=== PATIENT | male | born 1955 | race Caucasian/White ===

== ENCOUNTER → 2017-10-15 | Outpatient (CLI) | payer BC, MEDICAID ==
[2017-10-15 10:49] LABS: Basophils % (A) 0 %; Eosinophils # (A) 0.3 k/uL (0-0.7); Eosinophils % (A) 4 %; HCT 44.6 % (39.0-53.0); HGB 14.8 gm/dL (13.0-17.5); Lymphocytes # (A) 1.8 k/uL (1.0-4.8); Lymphocytes % (A) 22 %; MCH 30.7 pg (25.0-35.0); MCHC 33.1 g/dL (31.0-37.0); MCV 92.7 fL (80.0-100.0); Mean Platelet Volume 7.5; Monocytes # (A) 0.5 k/uL (0-1.0); Monocytes % (A) 6 %; Neutrophils # (A) 5.6 k/uL (1.3-7.7); Neutrophils % (A) 67 %; Platelet Count 245 k/uL (150-450); RBC 4.81 m/uL (4.30-5.90); RDW 12.9 % (11.5-15.5); WBC 8.4 k/uL (3.8-10.6)
[2017-10-15 12:12] LABS: Albumin 4.4 g/dL (3.5-5.0); Calcium 9.8 mg/dL (8.4-10.2); Potassium 4.8 mmol/L (3.5-5.1); Total Bilirubin 0.6 mg/dL (0.2-1.3); Total Protein 7.1 g/dL (6.3-8.2)
[2017-10-15 12:21] LABS: T4, Free (Free Thyroxine) 0.75 ng/dL (0.78-2.19)
[2017-10-15 12:35] LABS: PSA Annual Screen 0.7 ng/mL (0.00-4.00)
[2017-10-15 17:39] LABS: Hemoglobin A1C 6.6 % (4.0-6.0)
== END | disposition home or self-care (01) ==
LOC: LABWHC1 09:53
PROVIDERS: ATTEND Internal Medicine
DX: Z00.00 Encounter for general adult medical examination without abnormal findings (principal); E78.5 Hyperlipidemia, unspecified; I10 Essential (primary) hypertension; E11.9 Type 2 diabetes mellitus without complications; Z12.5 Encounter for screening for malignant neoplasm of prostate
CPT/HCPCS: 84439; 80061; 80053; 84443; 85025; 83036; 36415; G0103

== ENCOUNTER → 2017-10-22 | Outpatient (CLI) | payer BC, MEDICAID ==
--- NOTE | 2017-10-22 15:44 | US ---
EXAMINATION TYPE: US kidneys/renal and bladder DATE OF EXAM: 10/22/2017 COMPARISON: NONE CLINICAL HISTORY: R79.9 ABN LABS. EXAM MEASUREMENTS: Right Kidney: 11.5 x 5.7 x 5.7 cm Left Kidney: 11.1 x 6.4 x 6.2 cm Right Kidney: No hydronephrosis or masses seen Left Kidney: exophytic cyst upper pole measures 2.7 x 2.1 x 2.8 cm Bladder: wnl Bilateral Jets seen: Yes There is no evidence for hydronephrosis at this point in time. No nephrolithiasis is seen. No akbar s are identified. The urinary bladder is anechoic. Bilateral ureteral jets are seen. IMPRESSION: 1. Simple appearing cyst left kidney.
== END | disposition home or self-care (01) ==
LOC: RADUSWWP 15:05
PROVIDERS: ATTEND Internal Medicine
DX: N28.1 Cyst of kidney, acquired (principal)
CPT/HCPCS: 76770

== ENCOUNTER → 2017-11-23 | Outpatient (CLI) | payer BC, MEDICAID ==
--- NOTE | 2017-11-23 11:38 | MR ---
EXAMINATION TYPE: MR knee RT wo con DATE OF EXAM: 11/23/2017 COMPARISON: NONE HISTORY: Rt knee pain x 2 mos, no trauma TECHNIQUE: Multiplanar, multisequence imaging of the right knee is performed without IV contrast. FINDINGS: Narrowing the medial compartment knee joint and patellofemoral joint compatible with osteoa rthritis. No erosive change. Abnormal signal and intraosseous lesion involving the distal diaphysis of the femur may represent a b one cyst or chondroid lesion. There is a complex tear involving the posterior horn and body of the medial meniscus. There is adjace nt loss of cartilage involving the articular surface of the tibia and femur compatible with chondroma lacia. There is a small para meniscal cyst along the anterior horn of the lateral meniscus and probable fail ed tear. Intrasubstance signal the posterior horn the lateral meniscus also noted which appears olive tible with a tear. Anterior cruciate, posterior cruciate, medial collateral, lateral collateral ligaments intact. There is a small patellofemoral joint effusion with evidence of complete loss of cartilage along the medial patellar facet. No sizable popliteal fossa cyst. Patellar and quadriceps tendons intact. IMPRESSION: 1. Complex tear posterior horn and body medial meniscus with evidence of chondromalacia involving the articular surface of the medial margin of the femur and tibia. 2. Para meniscal cyst along the anterior horn of the lateral meniscus compatible with tear. There is extension of the tear into the body and posterior horn. 3. 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 4. Moderate suprapatellar bursal fluid collection #5 intraosseous lesion involving the distal femur m easuring 2 cm. Differential diagnosis would include chondroid lesion as a plain film suggested may be slightly sclerotic. Recommend bone scan. 5. Marrow edema involving the anterior central aspect of the femur compatible with nonspecific marrow edema. This may be reactive. Thinning of the femoral cartilage is noted anteriorly. Osteochondritis in the differential diagnosis.
== END ==
LOC: RADMRIMAIN 10:21
PROVIDERS: ATTEND Orthopaedic Surgery
DX: S83.241A Other tear of medial meniscus, current injury, right knee, initial encounter (principal); X58.XXXA Exposure to other specified factors, initial encounter; M94.261 Chondromalacia, right knee; M17.11 Unilateral primary osteoarthritis, right knee; M89.9 Disorder of bone, unspecified

== ENCOUNTER → 2017-12-10 | Outpatient (CLI) | payer BC, MEDICAID ==
--- NOTE | 2017-12-10 13:25 | NM ---
EXAMINATION TYPE: NM bone 3 phase DATE OF EXAM: 12/10/2017 COMPARISON: Correlation outside radiographs 11/11/2017. HISTORY: 62 year-old male right lower limb pain and swelling, right knee pain for 3 months with exert ion. History of prior fractures of the right hand and right leg. Prior right leg surgery with 2 pins inserted over 40 years ago. Technique: Triple phase bone scintigraphy was performed following the injection of 27.1 mCi Tc 99m MD P. Immediate images and 3.5 hours post injection images acquired. Imaging was performed of the [facility] knees. FINDINGS: Flow images show slight hyperemia about the right knee. Bone images show increased activity at the right knee especially about the distal femur. Delayed images show focal increased activity along both medial, lateral, and patellofemoral compartme nts. On the left, there is focal increased activity especially in the medial compartment to a lesser exten t within the patellofemoral compartment. IMPRESSION: 1. Three-phase bone scan abnormality right knee. Findings suggest tricompartmental degenerative dubon e with acute inflammation. Possibly osteoarthrosis. Correlate to exclude underlying infectious or inf lammatory (such as rheumatoid or crystalline) arthropathy. 2. On the left, there is chronic medial and to a lesser extent, patellofemoral compartmental, osteoar throsis.
== END | disposition home or self-care (01) ==
LOC: RADNMMAIN 07:03
PROVIDERS: ATTEND Orthopaedic Surgery
DX: M17.12 Unilateral primary osteoarthritis, left knee (principal); R22.41 Localized swelling, mass and lump, right lower limb
CPT/HCPCS: 78315; A9503

== ENCOUNTER → 2018-01-18 | Outpatient (CLI) | payer BC, MEDICAID ==
[2018-01-18 09:58] LABS: Basophils % (A) 0 %; Eosinophils # (A) 0.3 k/uL (0-0.7); Eosinophils % (A) 5 %; HCT 40.9 % (39.0-53.0); HGB 13.6 gm/dL (13.0-17.5); Lymphocytes # (A) 1.4 k/uL (1.0-4.8); Lymphocytes % (A) 20 %; MCH 31.6 pg (25.0-35.0); MCHC 33.3 g/dL (31.0-37.0); MCV 94.9 fL (80.0-100.0); Mean Platelet Volume 6.5; Monocytes # (A) 0.5 k/uL (0-1.0); Monocytes % (A) 7 %; Neutrophils # (A) 4.7 k/uL (1.3-7.7); Neutrophils % (A) 67 %; Platelet Count 192 k/uL (150-450); RBC 4.31 m/uL (4.30-5.90); RDW 13.7 % (11.5-15.5)
[2018-01-18 10:59] LABS: Potassium 5.1 mmol/L (3.5-5.1)
== END | disposition home or self-care (01) ==
LOC: LABWHC1 08:09
PROVIDERS: ATTEND Orthopaedic Surgery
DX: Z01.818 Encounter for other preprocedural examination (principal); M23.91 Unspecified internal derangement of right knee; Z01.812 Encounter for preprocedural laboratory examination
CPT/HCPCS: 36415; 80051; 85025; 93005

== ENCOUNTER 2018-02-03 08:22 | Day surgery (SDC) | payer BC, MEDICAID ==
[2018-01-28 12:56] VITALS: BMI 33.5
--- NOTE | 2018-02-02 16:15 | HP ---
HISTORY AND PHYSICAL REASON FOR ADMISSION: Surgery 02/03/2018 HISTORY OF PRESENT ILLNESS: Satya Mcdaniel is a 62-year-old patient seen with progressive right knee pain. We discussed treatment options. He elected to proceed with right knee arthroscopy. Consent was obtained. PAST MEDICAL HISTORY: Hypertension, [id number] diabetes. SURGICAL HISTORY: Noncontributory. MEDICATIONS: Antihypertensive. ALLERGIES: None reported. SOCIAL HISTORY: Patient denies current tobacco use. PHYSICAL EXAMINATION: Evaluation right knee range of motion 0-120. Mild to moderate effusion. Tenderness medial lateral joint line. Positive medial Jerel's. Positive lateral Jerel's. Ligaments stable. Hip rotation without pain. Distal neurovascular exam intact. RADIOGRAPHS: Right knee radiographs revealed mild to moderate osteoarthritic changes. Right knee MRI revealed medial meniscal tear, lateral meniscal tear. IMPRESSION: 1. Internal derangement, right knee with medial lateral meniscal tears. 2. Hypertension. 3. Nls-[id number] diabetes. PLAN: Right knee arthroscopy with partial meniscectomy and debridement. Surgery scheduled 02/03/2018. MMODL / IJN: [id number] /
[~2018-02-03 08:22] MED LIST: DEXAMETHASONE SOD PHOSPHATE 10 MG/ML 1 ML VIAL IV ONE; HYDROmorphone 0.5 MG/0.5 ML SYRINGE IVP PRN; LACTATED RINGERS 1,000 ML IV SCH; ONDANSETRON 4 MG/2 ML VIAL IVP ONE; ceFAZolin IN SWFI 2 GM/20 ML SYRINGE IVP ONE
[2018-02-03] MEDS ORDERED: LIDOCAINE 1% 20 ML VIAL (10MG/ML) FOR IV START INTRADERMA ONE (08:32)
[2018-02-03] MEDS ORDERED: PROPOFOL 10 MG/ML 20 ML VIAL IV ONE (09:10)
[2018-02-03] MEDS ORDERED: SUCCINYLCHOLINE CHLORIDE 100 MG/5 ML SYR IV ONE (09:10)
[2018-02-03] MEDS ORDERED: MIDAZOLAM 2 MG/2 ML VIAL ONE (09:10)
[2018-02-03] MEDS ORDERED: ePHEDrine SULFATE/0.9% NACL/PF 50 MG/5 ML SYRINGE IV ONE (09:10)
[2018-02-03] MEDS ORDERED: LIDOCAINE 1% INJ 10MG/ML (20 ML MDV) ONE (09:10)
[2018-02-03] MEDS ORDERED: ALBUTEROL INHALER 60 PUFF/8 GM INHALER INHALATION ONE (09:10)
[2018-02-03] MEDS ORDERED: fentaNYL (PF) 50 MCG/ML 2 ML AMP ONE (09:10)
[2018-02-03] MEDS ORDERED: ROPIVACAINE 5 MG/ML 30 ML VIAL MISCELLANE ONE (09:27)
--- NOTE | 2018-02-03 10:22 | P.OP ---
Date of Procedure: 02/03/18 Preoperative Diagnosis: Internal derangement right knee Postoperative Diagnosis: 1. Tear medial and lateral meniscus right knee 2. Grade 2 chondromalacia medial femoral condyle right knee 3. Grade 3 chondromalacia lateral femoral condyle right knee 4. Grade 2/3 chondromalacia patella right knee 5. Reactive synovitis medial, lateral and suprapatellar compartments right knee Procedure(s) Performed: 1. Arthroscopic partial medial and lateral meniscectomy right knee 2. Arthroscopic chondroplasty medial femoral condyle, lateral femoral condyle and patella right knee 3. Arthroscopic partial synovectomy medial, lateral and suprapatellar compartments right knee Anesthesia: NAYELIA, local Surgeon: Aaron Olson Estimated Blood Loss (ml): 5 Pathology: none sent Condition: stable Disposition: PACU Indications for Procedure: 62-year-old patient seen with progressive right knee pain. After treatment options were discussed, he elected to proceed with arthroscopy. Operative Findings: see description of procedure Description of Procedure: Patient was taken to the operative suite. Patient underwent a general anesthetic by the department of anesthesia. Patient was given preoperative antibiotics. The right lower extremity was placed in a well-padded arthroscopic leg franklin. The right leg was prepped and draped in the normal sterile orthopedic fashion. A lateral parapatellar and suprapatellar incision was made. Trochars were inserted. Arthroscopy was initiated. Suprapatellar pouch revealed diffuse thick reactive synovitis. The patellofemoral joint appeared to articulate congruently. There was grade 2/3 chondromalacia of the patella with some osteochondral tears present. The scope was guided into the medial gutter. No loose bodies or plica were identified. The scope was then guided into the medial compartment. A medial parapatellar incision was made. Trocar inserted followed by probe. There was a complex tear involving the posterior horn of the medial meniscus which did extend into the midbody. There were grade 2 chondromalacia changes of the medial femoral condyle with osteochondral tears present. There was thick reactive synovitis anteriorly. I performed a partial medial meniscectomy down to stable tissue. I performed a chondroplasty down to stable tissue. I performed a partial synovectomy decompressing thick reactive synovitis anteriorly. The residual meniscus was stable. The residual osteochondral surface was stable. There was good decompression of the synovitis. Scope and probe were then guided into the intercondylar notch. Cruciates were identified, probed and found to be stable. The scope and probe were then guided into lateral compartment. There was a complex tear lateral meniscus involving anterior horn, mid body and posterior horns. There were grade 3 chondromalacia changes of the lateral femoral condyle with osteochondral tears present. There was reactive synovitis anteriorly. I performed a partial lateral meniscectomy down to stable tissue. I performed a chondroplasty of the lateral femoral condyle down to stable tissue as well as a partial synovectomy decompressing the reactive synovitis anteriorly. The residual meniscal remnants were stable. The residual osteochondral surface of the femoral condyle was stable. There was good decompression of synovitis. The scope was in guided back into the suprapatellar compartment. I introduced a motorized shaver into the super patellar compartment. I debrided piecemeal fragments of meniscus I encountered. I performed a chondroplasty of the patella down to stable tissue. I performed a partial synovectomy decompressing the reactive synovitis. The residual osteochondral surface was found to be stable. I took one more look on the entire knee, no residual debris. Instruments were now removed from the joint. The joint was infiltrated with .25% Marcaine. Steri-Strips were applied to the portal sites. Sterile dressings were applied. The patient was placed into a KHAI hose. No tourniquet was utilized. The patient was awakened, transferred to a bed and taken to recovery stable satisfactory condition.
[2018-02-03 10:24] LABS: Glucose,Whole Blood 169 mg/dL (75-99)
[2018-02-03 10:28] VITALS: RESP 18; TEMP 83
[2018-02-03] MEDS ORDERED: HYDROcodone/APAP 5-325MG 1 EACH TAB PO ONE (11:14)
[2018-02-03 11:19] VITALS: BP 146/87; PULSE 74
== END 2018-02-03 11:44 | disposition home or self-care (01) ==
LOC: OR 08:22
PROVIDERS: ATTEND Orthopaedic Surgery
DX: S83.241A Other tear of medial meniscus, current injury, right knee, initial encounter (principal); S83.281A Other tear of lateral meniscus, current injury, right knee, initial encounter; X58.XXXA Exposure to other specified factors, initial encounter; M22.41 Chondromalacia patellae, right knee; M65.861 Other synovitis and tenosynovitis, right lower leg; I10 Essential (primary) hypertension; E11.9 Type 2 diabetes mellitus without complications; E78.5 Hyperlipidemia, unspecified; Z79.84 Long term (current) use of oral hypoglycemic drugs; Z79.899 Other long term (current) drug therapy
CPT/HCPCS: 29880; J2250; J1100; J2405; J2001; J3010; J2795; J0330; J2704; J0690

== ENCOUNTER → 2018-04-29 | Outpatient (CLI) | payer BC, MEDICAID ==
[2018-04-29 09:51] LABS: Basophils % (A) 0 %; Eosinophils # (A) 0.3 k/uL (0-0.7); Eosinophils % (A) 4 %; HGB 14.5 gm/dL (13.0-17.5); Lymphocytes # (A) 1.5 k/uL (1.0-4.8); Lymphocytes % (A) 24 %; MCH 31.7 pg (25.0-35.0); MCHC 33.7 g/dL (31.0-37.0); MCV 94.3 fL (80.0-100.0); Monocytes # (A) 0.4 k/uL (0-1.0); Monocytes % (A) 7 %; Neutrophils % (A) 63 %; Platelet Count 252 k/uL (150-450); RBC 4.56 m/uL (4.30-5.90); RDW 12.8 % (11.5-15.5); WBC 6.4 k/uL (3.8-10.6)
[2018-04-29 16:29] LABS: Albumin 4.5 g/dL (3.80-4.90); Albumin/Globulin Ratio 2.25 (1.20-2.10); Anion Gap 9.9 mmol/L (4.00-12.00); Calcium 9.4 mg/dL (8.7-10.3); Carbon Dioxide 24.1 mmol/L (21.6-31.8); LDL Cholesterol,Calculated 91.4 mg/dL (0.0-131.0); Potassium 4.3 mmol/L (3.5-5.5); Total Bilirubin 0.5 mg/dL (0.3-1.2); Total Protein 6.5 g/dL (6.2-8.2); VLDL Calculation 58.6 mg/dL (5.00-40.00)
[2018-04-29 16:39] LABS: T4, Free (Free Thyroxine) 0.9 ng/dL (0.80-1.80)
[2018-04-29 20:22] LABS: Hemoglobin A1C 6.4 % (4.0-6.0)
== END ==
LOC: LABWHC1 09:34
PROVIDERS: ATTEND Internal Medicine
DX: I12.9 Hypertensive chronic kidney disease with stage 1 through stage 4 chronic kidney disease, or unspecified chronic kidney disease (principal); E78.5 Hyperlipidemia, unspecified; N18.9 Chronic kidney disease, unspecified
CPT/HCPCS: 36415; 80053; 80061; 83036; 84439; 84443; 85025

== ENCOUNTER → 2018-09-19 | Outpatient (CLI) | payer BC, MEDICAID ==
[2018-09-19 12:14] LABS: Basophils % (A) 0 %; Eosinophils # (A) 0.3 k/uL (0-0.7); Eosinophils % (A) 4 %; HGB 13.8 gm/dL (13.0-17.5); Lymphocytes # (A) 1.2 k/uL (1.0-4.8); Lymphocytes % (A) 18 %; MCH 31.2 pg (25.0-35.0); MCHC 34.5 g/dL (31.0-37.0); MCV 90.3 fL (80.0-100.0); Mean Platelet Volume 7.3; Monocytes # (A) 0.5 k/uL (0-1.0); Monocytes % (A) 7 %; Neutrophils # (A) 4.7 k/uL (1.3-7.7); Neutrophils % (A) 70 %; Platelet Count 246 k/uL (150-450); RBC 4.43 m/uL (4.30-5.90); RDW 13.5 % (11.5-15.5); WBC 6.8 k/uL (3.8-10.6)
[2018-09-19 20:17] LABS: Hemoglobin A1C 6.8 % (4.0-6.0)
[2018-09-19 21:29] LABS: Albumin 4.5 g/dL (3.80-4.90); Albumin/Globulin Ratio 2.05 (1.60-3.17); Anion Gap 7.7 mmol/L (4.00-12.00); Calcium 9.7 mg/dL (8.7-10.3); Carbon Dioxide 27.3 mmol/L (21.6-31.8); Globulin 2.2 g/dL (1.6-3.3); Potassium 4.8 mmol/L (3.5-5.5); Total Bilirubin 0.6 mg/dL (0.3-1.2); Total Protein 6.7 g/dL (6.2-8.2)
[2018-09-19 21:37] LABS: T4, Free (Free Thyroxine) 0.9 ng/dL (0.80-1.80)
== END | disposition home or self-care (01) ==
LOC: LABWHC1 10:57
PROVIDERS: ATTEND Internal Medicine
DX: E78.5 Hyperlipidemia, unspecified (principal); I10 Essential (primary) hypertension
CPT/HCPCS: 36415; 80053; 80061; 83036; 84439; 84443; 85025

== ENCOUNTER 2019-01-20 06:46 | Day surgery (SDC) | payer BC, MEDICAID ==
[2019-01-18 10:28] VITALS: BMI 32.8
[~2019-01-20 06:46] MED LIST changes: +HEPARIN SODIUM,PORCINE 5,000 UNIT/ML 1 ML VIAL SQ ONE; +MIDAZOLAM 2 MG/2 ML VIAL IV PRN; +Pre Op ABX Message 1 EACH MISC MISCELLANE ONE; +SCOPOLAMINE 1.5MG/72HR PATCH TRANSDERM ONE; -ceFAZolin IN SWFI 2 GM/20 ML SYRINGE IVP ONE
[2019-01-20 07:29] LABS: Glucose,Whole Blood 156 mg/dL (75-99)
[2019-01-20] MEDS ORDERED: LIDOCAINE 1% INJ 10MG/ML (20 ML MDV) ONE (07:50)
[2019-01-20] MEDS ORDERED: SUCCINYLCHOLINE CHLORIDE 100 MG/5 ML SYR IV ONE (07:50)
[2019-01-20] MEDS ORDERED: ePHEDrine SULFATE/0.9% NACL/PF 50 MG/5 ML SYRINGE IV ONE (07:50)
[2019-01-20] MEDS ORDERED: fentaNYL (PF) 50 MCG/ML 2 ML AMP ONE (07:50)
[2019-01-20] MEDS ORDERED: PROPOFOL 10 MG/ML 20 ML VIAL IV ONE (07:50)
[2019-01-20] MEDS ORDERED: MIDAZOLAM 2 MG/2 ML VIAL ONE (07:50)
[2019-01-20] MEDS ORDERED: BUPIVACAIN-EPI 0.25%-1:200,000 30 ML VIAL SQ ONE ×2 (08:22)
[2019-01-20] MEDS ORDERED: ceFAZolin 1,000 MG VIAL IVPB ONE (08:36)
[2019-01-20 09:49] VITALS: TEMP 97
[2019-01-20 10:00] VITALS: RESP 16
[2019-01-20] MEDS ORDERED: LACTATED RINGERS 1,000 ML IV ONE ×2 (10:15)
[2019-01-20] MEDS ORDERED: NALOXONE 0.4 MG/ML 1 ML VIAL IV PRN (10:18)
[2019-01-20] MEDS ORDERED: HYDROcodone/APAP 5-325MG 1 EACH TAB PO PRN (10:18)
--- NOTE | 2019-01-20 10:25 | P.OP ---
Date of Procedure: 01/20/19 Procedure(s) Performed: PREOPERATIVE DIAGNOSIS: Perineal abscess POSTOPERATIVE DIAGNOSIS: Chronic perineal sinus infection with abscess PROCEDURE: Excision perineal sinus infection/abscess SURGEON: Deniz EBL: 10 mL ANESTHESIA: General COMPLICATIONS: None OPERATIVE PROCEDURE: Patient was placed in the prone jackknife position after general anesthesia was achieved. The perianal region and scrotum wrapped and draped sterilely. The patient had a sinus opening present midway between the anus and the perineal body just to the left of midline. This was probed and did have some purulent fluid emanating from the opening. This sinus tract went anteriorly a distance of approximately 2.5 cm. This did not appear to easily enter into the indurated masslike area at the perineal body. This induration/mass measured 3 cm x 2 cm. An elliptical incision was made around the sinus opening and this was carried down into a elliptical incision in the midline extending just superficial to the area of induration in the perineum. The area where the sinus opening was present was carefully excised and this was carried down into the subcutaneous tissues where the indurated mass was present. As I was dissecting around the area of induration I did enter into an abscess cavity at the site of palpable mass. The fluctuant purulent filled cavity was about 1.5-2 cm in size. Cultures were taken. This was fully excised using both blunt dissection and sharp dissection and electrocautery. As I was inspecting our wound bed just to the left of midline we identified a few small pieces of hair within the wound itself. This appeared to be emanating from an additional sinus opening that was present anteriorly into the left. This sinus opening was excised sharply. The area was fully irrigated with saline. Subcutaneous tissues were closed using 3-0 Vicryl sutures in multiple layers. The skin was then closed using a combination of interrupted 3-0 Vicryl and running 3-0 catgut sutures. Skin glue was used along both suture lines as well. Sterile dressings were applied over this. DISPOSITION: Stable to recovery room
[2019-01-20 10:29] LABS: Glucose,Whole Blood 193 mg/dL (75-99)
[2019-01-20 10:52] VITALS: BP 144/85; PULSE 82
== END 2019-01-20 11:15 | disposition home or self-care (01) ==
LOC: OR 06:46
PROVIDERS: ATTEND Surgery
DX: L72.8 Other follicular cysts of the skin and subcutaneous tissue (principal); L02.215 Cutaneous abscess of perineum; I10 Essential (primary) hypertension; Z80.1 Family history of malignant neoplasm of trachea, bronchus and lung; Z82.49 Family history of ischemic heart disease and other diseases of the circulatory system; E11.9 Type 2 diabetes mellitus without complications; E78.5 Hyperlipidemia, unspecified; Z79.84 Long term (current) use of oral hypoglycemic drugs; Z79.899 Other long term (current) drug therapy
CPT/HCPCS: 88304; 87070; 87205; 87075; 10061; J2250; J1644; J1100; J2405; J0690; J2001; J3010; J0330; J2704

== ENCOUNTER → 2019-03-01 | Outpatient (CLI) | payer BC, MEDICAID ==
[2019-03-01 14:38] LABS: HCT 43.9 % (39.0-53.0); HGB 14.9 gm/dL (13.0-17.5); MCH 31.8 pg (25.0-35.0); MCV 93.5 fL (80.0-100.0); Mean Platelet Volume 7.2; Platelet Count 276 k/uL (150-450); RBC 4.69 m/uL (4.30-5.90); RDW 15.2 % (11.5-15.5); WBC 8.4 k/uL (3.8-10.6)
[2019-03-01 14:43] LABS: Appearance,Urine Clear (Clear); Bilirubin,Urine Negative (Negative); Blood,Urine Negative (Negative); Color,Urine Yellow; Glucose,Urine (UA) Negative (Negative); Ketones,Urine Negative (Negative); Leukocyte Esterase,Urine Negative (Negative); Nitrite,Urine Negative (Negative); PH, Urine 5.5 (5.0-8.0); Protein,Urine Negative (Negative); Specific Gravity,Urine 1.019 (1.001-1.035); Urobilinogen,Urine <2.0 mg/dL (<2.0)
[2019-03-01 18:38] LABS: Iron Saturation 27.17 (15.00-50.00)
[2019-03-01 18:46] LABS: Vitamin D 25 Hydroxy 16.8 ng/mL (30.0-100.0)
[2019-03-01 19:06] LABS: African American GFR (CKD) 61.5 (60.0-200.0); Albumin 4.6 g/dL (3.80-4.90); Albumin/Globulin Ratio 2.19 (1.60-3.17); Anion Gap 8.2 mmol/L (4.00-12.00); BUN/Creat Ratio 16.43 Ratio (12.00-20.00); Carbon Dioxide 29.8 mmol/L (21.6-31.8); Globulin 2.1 g/dL (1.6-3.3); Phosphorus 3.1 mg/dL (2.4-5.1); Potassium 4.4 mmol/L (3.5-5.5); Total Bilirubin 0.5 mg/dL (0.3-1.2); Total Protein 6.7 g/dL (6.2-8.2); Uric Acid 7.1 mg/dL (3.7-8.7)
== END | disposition home or self-care (01) ==
LOC: LABWHC1 12:13
PROVIDERS: ATTEND Internal Medicine
DX: N39.0 Urinary tract infection, site not specified (principal); R80.9 Proteinuria, unspecified; E55.9 Vitamin D deficiency, unspecified; M10.9 Gout, unspecified; N25.81 Secondary hyperparathyroidism of renal origin; N18.3 Chronic kidney disease, stage 3 (moderate); D63.1 Anemia in chronic kidney disease; Z12.5 Encounter for screening for malignant neoplasm of prostate
CPT/HCPCS: 36415; 80053; 81003; 82043; 82306; 82570; 82728; 83540; 83550; 83735; 83970; 84100; 84550; 85027

== ENCOUNTER → 2019-03-14 | Outpatient (CLI) | payer BC, MEDICAID | END | disposition home or self-care (01) | LOC: LABWHC1 09:26 | PROVIDERS: ATTEND Internal Medicine | DX: R97.20 Elevated prostate specific antigen [PSA] (principal) | CPT/HCPCS: 36415; G0103 ==

== ENCOUNTER 2019-03-17 12:22 | Emergency (ER) | payer BC, MEDICAID ==
[2019-03-17 12:39] VITALS: TEMP 97.9
[2019-03-17] MEDS ORDERED: SODIUM CHLORIDE 0.9% 500 ML 500 ML IV STA (13:16)
[2019-03-17] MEDS ORDERED: SODIUM CHLORIDE 0.9% 1,000 ML IV STA (13:16)
[2019-03-17] MEDS ORDERED: KETOROLAC 30 MG/ML 1 ML VIAL IVP STA (13:16)
[2019-03-17] MEDS ORDERED: ONDANSETRON 4 MG/2 ML VIAL IVP STA (13:16)
[2019-03-17] MEDS ORDERED: MORPHINE SULFATE 4 MG/ML SYRINGE IV STA (13:16)
[2019-03-17 13:51] LABS: Appearance,Urine Clear (Clear); Bilirubin,Urine Negative (Negative); Blood,Urine Negative (Negative); Color,Urine Light Yellow; Glucose,Urine (UA) Negative (Negative); Ketones,Urine Negative (Negative); Leukocyte Esterase,Urine Negative (Negative); Nitrite,Urine Negative (Negative); Protein,Urine Negative (Negative); Specific Gravity,Urine 1.017 (1.001-1.035); Urobilinogen,Urine <2.0 mg/dL (<2.0)
[2019-03-17 13:56] LABS: Basophils # (A) 0.1 k/uL (0-0.2); Basophils % (A) 1 %; Eosinophils # (A) 0.2 k/uL (0-0.7); Eosinophils % (A) 2 %; HCT 42.9 % (39.0-53.0); HGB 14.1 gm/dL (13.0-17.5); Lymphocytes # (A) 1.2 k/uL (1.0-4.8); Lymphocytes % (A) 16 %; MCH 31.3 pg (25.0-35.0); MCHC 32.9 g/dL (31.0-37.0); MCV 95.1 fL (80.0-100.0); Mean Platelet Volume 6.5; Monocytes # (A) 0.4 k/uL (0-1.0); Monocytes % (A) 6 %; Neutrophils # (A) 5.4 k/uL (1.3-7.7); Neutrophils % (A) 72 %; Platelet Count 249 k/uL (150-450); RBC 4.51 m/uL (4.30-5.90); RDW 13.6 % (11.5-15.5); WBC 7.4 k/uL (3.8-10.6)
[2019-03-17 14:20] LABS: Albumin 4.3 g/dL (3.5-5.0); Calcium 9.8 mg/dL (8.4-10.2); Total Bilirubin 0.6 mg/dL (0.2-1.3); Total Protein 7.4 g/dL (6.3-8.2)
[2019-03-17] MEDS ORDERED: MORPHINE SULFATE 4 MG/ML SYRINGE IVP STA (14:21)
--- NOTE | 2019-03-17 14:24 | ED ---
Back Pain HPI - General Chief Complaint: Back Pain/Injury Stated Complaint: flank pain Time Seen by Provider: 03/17/19 13:05 Source: patient, RN notes reviewed Mode of arrival: ambulatory Limitations: no limitations - History of Present Illness Initial Comments: 63-year-old male presents emergency Department chief complaint right flank pain. Patient states started while at work [place] week ago at that he just strained himself states pain is getting worse. It does radiate occasionally down his right lower quadrant. Patient has a history of kidney stones but states this feels different. Patient denies any known fevers chills denies any diarrhea, constipation, dysuria, hematuria. Patient denies any history abdominal surgeries. Patient states that laying down and sitting down makes pain worse it is better when he standing. - Related Data Home Medications Medication Instructions Recorded Confirmed Hydrochlorothiazide 25 mg PO DAILY 01/28/18 01/18/19 metFORMIN HCL [Glucophage] 500 mg PO DAILY 01/28/18 01/18/19 Levofloxacin [Levaquin] 500 mg PO DAILY 01/18/19 01/18/19 amLODIPine [Norvasc] 5 mg PO HS PRN 01/18/19 01/18/19 amLODIPine [Norvasc] 5 mg PO QAM 01/18/19 01/20/19 metFORMIN HCL [Glucophage] 500 mg PO W/SUPPER PRN 01/18/19 01/18/19 Previous Rx's Medication Instructions Recorded Amoxicillin/Potassium Clav 1 tab PO Q12HR #10 tab 01/20/19 [Augmentin 875-125 Tablet] Hydrocodone/Acetaminophen [[place] 1 tab PO Q6HR PRN 3 Days #10 tab 01/20/19 5-325] Cyclobenzaprine [Flexeril] 10 mg PO TID PRN #15 tab 03/17/19 HYDROcodone/APAP 7.5-325MG [[place] 1 tab PO Q6HR PRN 3 Days #12 tab 03/17/19 7.5-325] Allergies Allergy/AdvReac Type Severity Reaction Status Date / Time No Known Allergies Allergy Verified 03/17/19 12:36 Review of Systems ROS Statement: Those systems with pertinent positive or pertinent negative responses have been documented in the HPI. ROS Other: All systems not noted in ROS Statement are negative. Past Medical History Past Medical History: Cancer, Diabetes Mellitus, Hyperlipidemia, Hypertension Additional Past Medical History / Comment(s): Cancer rt cheek, last chol level normal-no longer taking Rx History of Any Multi-Drug Resistant Organisms: None Reported Past Surgical History: Orthopedic Surgery Additional Past Surgical History / Comment(s): arthroscopy rt knee,ORIF rt leg w/ 2 pins,CA removed rt cheek,lasik johana eyes Past Anesthesia/Blood Transfusion Reactions: No Reported Reaction Additional Past Anesthesia/Blood Transfusion Reaction / Comment(s): stated "chest was sore post op for a few days after arthroscopy of rt knee".new hx blood transfusions Past Psychological History: No Psychological Hx Reported Smoking Status: Never smoker Past Alcohol Use History: None Reported Past Drug Use History: None Reported - Past Family History Brother(s) Family Medical History: Cancer General Exam Limitations: no limitations General appearance: alert, in no apparent distress Head exam: Present: atraumatic, normocephalic, normal inspection Eye exam: Present: normal appearance, PERRL, EOMI. Absent: scleral icterus, conjunctival injection, periorbital swelling ENT exam: Present: normal exam, normal oropharynx, mucous membranes moist Neck exam: Present: normal inspection, full ROM. Absent: tenderness, meningismus, lymphadenopathy Respiratory exam: Present: normal lung sounds bilaterally. Absent: respiratory distress, wheezes, rales, rhonchi, stridor Cardiovascular Exam: Present: regular rate, normal rhythm, normal heart sounds. Absent: systolic murmur, diastolic murmur, rubs, gallop, clicks GI/Abdominal exam: Present: soft, normal bowel sounds. Absent: distended, tenderness, guarding, rebound, rigid Back exam: Present: CVA tenderness (R). Absent: CVA tenderness (L) Neurological exam: Present: alert, oriented X3, CN II-XII intact Skin exam: Present: warm, dry, intact, normal color. Absent: rash Course Vital Signs 03/17/19 12:36 Temperature 97.9 F Pulse Rate 60 Respiratory 16 Rate Blood Pressure 172/92 O2 Sat by Pulse 95 Oximetry Medical Decision Making - Medical Decision Making 63-year-old male presented for right flank pain. 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 Patient's pain is related to a lumbar strain. Patient will be treated appropriately patient will follow-up PCP for outpatient CT of his chest. - Lab Data Result diagrams: 03/17/19 13:40 03/17/19 13:40 Lab Results 03/17/19 03/17/19 03/17/19 Range/Units 13:40 13:40 13:40 WBC 7.4 (3.8-10.6) k/uL RBC 4.51 (4.30-5.90) m/uL Hgb 14.1 (13.0-17.5) gm/dL Hct 42.9 (39.0-53.0) % MCV 95.1 (80.0-100.0) fL MCH 31.3 (25.0-35.0) pg MCHC 32.9 (31.0-37.0) g/dL RDW 13.6 (11.5-15.5) % Plt Count 249 (150-450) k/uL Neutrophils % 72 % Lymphocytes % 16 % Monocytes % 6 % Eosinophils % 2 % Basophils % 1 % Neutrophils # 5.4 (1.3-7.7) k/uL Lymphocytes # 1.2 (1.0-4.8) k/uL Monocytes # 0.4 (0-1.0) k/uL Eosinophils # 0.2 (0-0.7) k/uL Basophils # 0.1 (0-0.2) k/uL Sodium 139 (137-145) mmol/L Potassium 4.0 (3.5-5.1) mmol/L Chloride 102 (98-107) mmol/L Carbon Dioxide 27 (22-30) mmol/L Anion Gap 10 mmol/L BUN 26 H (9-20) mg/dL Creatinine 1.35 H (0.66-1.25) mg/dL Est GFR (CKD-EPI)AfAm 64 (>60 ml/min/1.73 sqM) Est GFR (CKD-EPI)NonAf 55 (>60 ml/min/1.73 sqM) Glucose 126 H (74-99) mg/dL Calcium 9.8 (8.4-10.2) mg/dL Total Bilirubin 0.6 (0.2-1.3) mg/dL AST 23 (17-59) U/L ALT 36 (21-72) U/L Alkaline Phosphatase 74 (38-126) U/L Total Protein 7.4 (6.3-8.2) g/dL Albumin 4.3 (3.5-5.0) g/dL Lipase 61 (23-300) U/L Urine Color Light Yellow Urine Appearance Clear (Clear) Urine pH 5.0 (5.0-8.0) Ur Specific [place] 1.017 (1.001-1.035) Urine Protein Negative (Negative) Urine Glucose (UA) Negative (Negative) Urine Ketones Negative (Negative) Urine Blood Negative (Negative) Urine Nitrite Negative (Negative) Urine Bilirubin Negative (Negative) Urine Urobilinogen <2.0 (<2.0) mg/dL Ur Leukocyte Esterase Negative (Negative) Disposition Clinical Impression: Strain of lumbar region Disposition: HOME SELF-CARE Condition: Stable Instructions (If sedation given, give patient instructions): Acute Low Back Pain (ED) Additional Instructions: Please return to the Emergency Department if symptoms worsen or any other concerns. Prescriptions: Cyclobenzaprine [Flexeril] 10 mg PO TID PRN #15 tab PRN Reason: Muscle Spasm HYDROcodone/APAP 7.5-325MG [[place] 7.5-325] 1 tab PO Q6HR PRN 3 Days #12 tab PRN Reason: Pain Is patient prescribed a controlled substance at d/c from ED?: Yes When asked, does pt state using other controlled substances?: No If prescribed controlled substance>3 days was MAPS reviewed?: Prescribed <3 Days If opioid is for acute pain is fill amount 7 days or less?: Yes If Rx opioid, was Start Talking consent form obtained?: Yes Referrals: Neha Marc MD [Primary Care Provider] - 1-2 days Time of Disposition: 14:51
--- NOTE | 2019-03-17 14:32 | CT ---
EXAMINATION TYPE: CT abdomen pelvis wo con DATE OF EXAM: 03/17/2019 COMPARISON: None INDICATION: Right sided pain with nausea DLP: 1042.4 mGycm, Automated exposure control for dose reduction was used. CONTRAST: 0 mL of Isovue 300. Study performed without Oral Contrast TECHNIQUE: Axial images were obtained from above the diaphragm to the pubic rami in the axial plane a t 5 mm thick sections. Reconstructed images are reviewed on the computer in the coronal plane. FINDINGS: Limited CT sections are obtained the lung bases. There is a 0.5 cm nodule just above the left diaphr agm. Series 204 image 17. Mild coronary artery calcification is present.. CT ABDOMEN: Liver: Some minimal fatty infiltration may be present diffusely. Spleen: Normal Pancreas: Normal Adrenal glands: The adrenal glands are normal. Gallbladder: Normal Kidneys: No masses are evident. No hydronephrosis is present. No cysts are present. No renal stone s are evident. Aorta: Vascular calcification is within the aorta. Inferior vena cava: Normal. CT PELVIS: Loops of bowel within the abdomen and pelvis are normal. Studies without oral contrast limiting b owel evaluation. Appendix: Normal as visualized. Urinary bladder: Normal. Genitourinary structures: Prostate looks normal Osseous structures: No suspicious lytic or sclerotic lesions. There are some degenerative changes at the pubic symphysis. Subchondral cysts are present at the pubic symphysis. IMPRESSIONS: 1. 0.5 cm nodule may be above the left diaphragm. Follow-up CT chest is recommended. 2. No suspicious abnormality to account for right flank pain
[2019-03-17 15:09] VITALS: BP 169/99; PULSE 69; RESP 18
== END 2019-03-17 15:11 | disposition home or self-care (01) ==
LOC: EC 12:22
DX: S39.012A Strain of muscle, fascia and tendon of lower back, initial encounter (principal); R91.1 Solitary pulmonary nodule; E11.9 Type 2 diabetes mellitus without complications; I10 Essential (primary) hypertension; Z79.84 Long term (current) use of oral hypoglycemic drugs; Z79.899 Other long term (current) drug therapy; Z85.818 Personal history of malignant neoplasm of other sites of lip, oral cavity, and pharynx
CPT/HCPCS: 36415; 80053; 83690; 85025; 81003; 74176; 99284; 96374; 96375 ×2; 96376; 96361; J2270; J2405; J1885

== ENCOUNTER → 2019-08-23 | Outpatient (CLI) | payer BC ==
[2019-08-23 07:37] LABS: Basophils % (A) 0 %; Eosinophils # (A) 0.3 k/uL (0-0.7); Eosinophils % (A) 3 %; HCT 43.3 % (39.0-53.0); HGB 14.3 gm/dL (13.0-17.5); Lymphocytes # (A) 1.6 k/uL (1.0-4.8); Lymphocytes % (A) 20 %; MCH 31.4 pg (25.0-35.0); MCV 95.2 fL (80.0-100.0); Mean Platelet Volume 7.7; Monocytes # (A) 0.5 k/uL (0-1.0); Monocytes % (A) 7 %; Neutrophils # (A) 5.5 k/uL (1.3-7.7); Neutrophils % (A) 69 %; Platelet Count 212 k/uL (150-450); RBC 4.55 m/uL (4.30-5.90); RDW 12.9 % (11.5-15.5); WBC 7.9 k/uL (3.8-10.6)
[2019-08-23 11:58] LABS: ALT 45 U/L (10-49); AST 22 U/L (14-35); African American GFR (CKD) 66.8 (60.0-200.0); Alkaline Phosphatase 84 U/L (41-126); BUN/Creat Ratio 16.15 Ratio (12.00-20.00); Bilirubin, Conjugated <0.20 mg/dL (0.20-0.40); Calcium 9.2 mg/dL (8.7-10.3); Carbon Dioxide 28.8 mmol/L (21.6-31.8); Chloride 106 mmol/L (96-109); Chol/HDL Ratio 4.96; Cholesterol 253 mg/dL (0-200); Globulin 2.2 g/dL (1.6-3.3); Glucose 167 mg/dL (70-110); LDL Cholesterol,Calculated 147.8 mg/dL (0.0-131.0); Non-African American GFR(CKD) 57.7 (60.0-200.0); Potassium 4.6 mmol/L (3.5-5.5); Sodium 142 mmol/L (135-145); Total Bilirubin 0.4 mg/dL (0.3-1.2); Total Protein 6.6 g/dL (6.2-8.2)
[2019-08-23 15:46] LABS: Hemoglobin A1C 6.8 % (4.0-6.0)
== END | disposition home or self-care (01) ==
LOC: LABWHC1 06:56
PROVIDERS: ATTEND Internal Medicine
DX: Z00.00 Encounter for general adult medical examination without abnormal findings (principal); I10 Essential (primary) hypertension; E78.5 Hyperlipidemia, unspecified; E11.9 Type 2 diabetes mellitus without complications; Z79.899 Other long term (current) drug therapy; Z12.5 Encounter for screening for malignant neoplasm of prostate
CPT/HCPCS: 84439; 80061; 80053; 82248; 84443; 85025; 83036; 36415; G0103

== ENCOUNTER → 2020-04-04 | Outpatient (CLI) | payer BC ==
[2020-04-04 12:18] LABS: African American GFR (CKD) 61.1 (60.0-200.0); Anion Gap 9.1 mmol/L (4.00-12.00); BUN/Creat Ratio 19.29 Ratio (12.00-20.00); Calcium 9.3 mg/dL (8.7-10.3); Carbon Dioxide 26.9 mmol/L (21.6-31.8); Non-African American GFR(CKD) 52.7 (60.0-200.0); Potassium 4.4 mmol/L (3.5-5.5)
[2020-04-04 16:10] LABS: Hemoglobin A1C 6.6 % (4.0-6.0)
== END | disposition home or self-care (01) ==
LOC: LABWHC1 07:30
PROVIDERS: ATTEND Internal Medicine
DX: E11.9 Type 2 diabetes mellitus without complications (principal); N19 Unspecified kidney failure
CPT/HCPCS: 36415; 80048; 83036

== ENCOUNTER → 2020-09-18 | Outpatient (CLI) | payer BC ==
[2020-09-18 10:38] LABS: Basophils # (A) 0.03 X 10*3/uL (0.00-0.10); Basophils % (A) 0.5 %; Eosinophils # (A) 0.23 X 10*3/uL (0.04-0.35); Eosinophils % (A) 3.5 %; HCT 44.4 % (39.6-50.0); HGB 14.6 g/dL (13.0-17.0); Lymphocytes # (A) 1.47 X 10*3/uL (0.90-5.00); Lymphocytes % (A) 22.6 %; MCH 30.9 pg (27.0-32.0); MCHC 32.9 g/dL (32.0-37.0); MCV 93.9 fL (80.0-97.0); Mean Platelet Volume 9.8 fL (9.5-12.2); Monocytes % (A) 9.2 %; Neutrophils # (A) 4.15 X 10*3/uL (1.80-7.70); Neutrophils % (A) 63.7 %; Platelet Count 253 X 10*3/uL (140-440); RBC 4.73 X 10*6/uL (4.40-5.60); RDW 13.2 % (11.5-14.5); WBC 6.51 X 10*3/uL (4.50-10.00)
[2020-09-18 11:13] LABS: T4, Free (Free Thyroxine) 0.9 ng/dL (0.80-1.80)
[2020-09-18 11:15] LABS: African American GFR (CKD) 66.4 (60.0-200.0); Albumin 4.3 g/dL (3.80-4.90); Albumin/Globulin Ratio 2.15 (1.60-3.17); Anion Gap 8.7 mmol/L (4.00-12.00); BUN/Creat Ratio 18.46 Ratio (12.00-20.00); Calcium 9.5 mg/dL (8.7-10.3); Carbon Dioxide 27.3 mmol/L (21.6-31.8); Chol/HDL Ratio 4.31; LDL Cholesterol,Calculated 136.8 mg/dL (0.0-131.0); Non-African American GFR(CKD) 57.3 (60.0-200.0); PSA Annual Screen 0.8 ng/mL (0.0-4.0); Potassium 4.1 mmol/L (3.5-5.5); Total Bilirubin 0.5 mg/dL (0.2-1.2); Total Protein 6.3 g/dL (6.2-8.2); VLDL Calculation 25.2 mg/dL (5.00-40.00)
[2020-09-18 15:54] LABS: Hemoglobin A1C 6.9 % (4.0-6.0)
== END | disposition home or self-care (01) ==
LOC: LABWHC1 07:04
PROVIDERS: ATTEND Internal Medicine
DX: Z00.00 Encounter for general adult medical examination without abnormal findings (principal); Z12.5 Encounter for screening for malignant neoplasm of prostate; E78.00 Pure hypercholesterolemia, unspecified; I10 Essential (primary) hypertension; E11.9 Type 2 diabetes mellitus without complications
CPT/HCPCS: 84439; 80061; 80053; 84443; 85025; 83036; 36415; G0103

== ENCOUNTER → 2021-10-06 | Outpatient (CLI) | payer BC ==
[2021-10-07 00:56] LABS: Basophils # (A) 0.03 X 10*3/uL (0.00-0.10); Basophils % (A) 0.5 %; Eosinophils # (A) 0.17 X 10*3/uL (0.04-0.35); HCT 42.5 % (39.6-50.0); HGB 13.8 g/dL (13.0-17.0); Immature Grans, Automated 0.4 %; Lymphocytes # (A) 1.56 X 10*3/uL (0.90-5.00); Lymphocytes % (A) 27.9 %; MCH 31.2 pg (27.0-32.0); MCHC 32.5 g/dL (32.0-37.0); MCV 96.2 fL (80.0-97.0); Mean Platelet Volume 10.7 fL (9.5-12.2); Monocytes # (A) 0.53 X 10*3/uL (0.20-1.00); Monocytes % (A) 9.5 %; NRBC Per 100 WBC 0 /100 WBCS (0.0-0.0); Neutrophils # (A) 3.29 X 10*3/uL (1.80-7.70); Neutrophils % (A) 58.7 %; Platelet Count 234 X 10*3/uL (140-440); RBC 4.42 X 10*6/uL (4.40-5.60); RDW 12.6 % (11.5-14.5)
[2021-10-07 02:07] LABS: ALT 44 U/L (10-49); AST 21 U/L (14-35); African American GFR (CKD) 57.8 (60.0-200.0); Albumin 4.4 g/dL (3.8-4.9); Albumin/Globulin Ratio 1.84 (1.60-3.17); Alkaline Phosphatase 90 U/L (41-126); Bilirubin, Conjugated <0.20 mg/dL (0.20-0.40); Blood Urea Nitrogen 30.3 mg/dL (9.0-27.0); Calcium 9.3 mg/dL (8.7-10.3); Carbon Dioxide 22.8 mmol/L (20.0-27.5); Chloride 100 mmol/L (96-109); Chol/HDL Ratio 6.33 Ratio; Globulin 2.4 g/dL (1.6-3.3); Glucose 220 mg/dL (70-110); LDL Cholesterol,Calculated 143.3 mg/dL (0.0-131.0); Non-African American GFR(CKD) 49.8 (60.0-200.0); Sodium 136 mmol/L (135-145); Total Protein 6.8 g/dL (6.2-8.2)
== END | disposition home or self-care (01) ==
LOC: LABWHC1 09:00
PROVIDERS: ATTEND Internal Medicine
DX: Z00.00 Encounter for general adult medical examination without abnormal findings (principal); E11.9 Type 2 diabetes mellitus without complications; E78.00 Pure hypercholesterolemia, unspecified; I10 Essential (primary) hypertension; R05.9 Cough, unspecified
CPT/HCPCS: 84439; 80061; 80053; 82248; 84443; 85025; 83036; 93005; 36415; G0103

== ENCOUNTER 2021-10-30 06:05 | Day surgery (SDC) | payer BC ==
[2021-10-28 08:55] VITALS: BMI 33.3
[~2021-10-30 06:05] MED LIST changes: +ACETAMINOPHEN TAB 500 MG TAB PO PRN; -DEXAMETHASONE SOD PHOSPHATE 10 MG/ML 1 ML VIAL IV ONE; +DEXAMETHASONE SOD PHOSPHATE 4 MG/ML 1 ML VIAL IV ONE; +GABAPENTIN 300 MG CAP PO PRN; -HEPARIN SODIUM,PORCINE 5,000 UNIT/ML 1 ML VIAL SQ ONE; +MELOXICAM 7.5 MG TAB PO PRN; -MIDAZOLAM 2 MG/2 ML VIAL IV PRN; +ONDANSETRON 4 MG/2 ML VIAL IVP PRN; -Pre Op ABX Message 1 EACH MISC MISCELLANE ONE; -SCOPOLAMINE 1.5MG/72HR PATCH TRANSDERM ONE; +TRANEXAMIC ACID IN NACL,ISO-OS 1,000 MG in SALINE 1 100ML.BAG IVPB PRN
[2021-10-30 07:01] LABS: Glucose,Whole Blood 206 mg/dL (75-99)
[2021-10-30] MEDS ORDERED: MIDAZOLAM 2 MG/2 ML VIAL IVP ONE (07:31)
[2021-10-30 07:36] LABS: INR 0.9 (<1.2); Prothrombin Time 9.9 sec (9.0-12.0)
[2021-10-30] MEDS ORDERED: NEOSTIGMINE 1 MG/ML 10 ML VIAL ONE (08:02)
[2021-10-30] MEDS ORDERED: MIDAZOLAM 2 MG/2 ML VIAL ONE (08:02)
[2021-10-30] MEDS ORDERED: ROCURONIUM 10 MG/ML (5 ML VIAL) IV ONE (08:02)
[2021-10-30] MEDS ORDERED: TRANEXAMIC ACID IN NACL,ISO-OS 1,000 MG/100 ML BAG ONE (08:02)
[2021-10-30] MEDS ORDERED: ePHEDrine 50 MG/ML 1 ML VIAL ONE (08:02)
[2021-10-30] MEDS ORDERED: LIDOCAINE 2% INJ 20 MG/ML (2 ML VIAL) ONE (08:02)
[2021-10-30] MEDS ORDERED: SUCCINYLCHOLINE CHLORIDE VIAL 200 MG/10 ML VIAL IV ONE (08:02)
[2021-10-30] MEDS ORDERED: PROPOFOL 10 MG/ML 20 ML VIAL IV ONE (08:02)
[2021-10-30] MEDS ORDERED: HYDROmorphone (PF) 1 MG/ML ONE (08:02)
[2021-10-30] MEDS ORDERED: GLYCOPYRROLATE 0.2 MG/ML 2 ML VIAL ONE (08:02)
[2021-10-30] MEDS ORDERED: fentaNYL (PF) 50 MCG/ML 2 ML AMP ONE (08:02)
[2021-10-30] MEDS ORDERED: ONDANSETRON 4 MG/2 ML VIAL IVP PRN (08:05)
[2021-10-30] MEDS ORDERED: NALOXONE 0.4 MG/ML 1 ML VIAL IV PRN (08:05)
[2021-10-30] MEDS ORDERED: TEMAZEPAM 15 MG CAP PO PRN (08:05)
[2021-10-30] MEDS ORDERED: MAGNESIUM HYDROXIDE 2,400 MG/10 ML CUP PO PRN (08:05)
[2021-10-30] MEDS ORDERED: NA PHOS,M-B/NA PHOS,DI-BA 133 ML ENEMA RECTAL PRN (08:05)
[2021-10-30] MEDS ORDERED: traMADol 50 MG TAB PO PRN (08:05)
[2021-10-30] MEDS ORDERED: bisacodyL 10 MG SUPP RECTAL PRN (08:05)
[2021-10-30] MEDS ORDERED: HYDROmorphone 0.5 MG/0.5 ML SYRINGE IVP PRN ×3 (08:05)
[2021-10-30] MEDS ORDERED: diazePAM 5 MG TAB PO PRN (08:05)
[2021-10-30] MEDS ORDERED: HYDROcodone/APAP 7.5-325MG 1 EACH TAB PO PRN (08:10)
[2021-10-30] MEDS ORDERED: ceFAZolin 3,000 MG in SODIUM CHLORIDE 0.9% IRRIGATIO 3,000 ML IRRIGATION ONE (08:33)
[2021-10-30] MEDS ORDERED: LACTATED RINGERS 1,000 ML IV ONE (09:11)
[2021-10-30] MEDS ORDERED: ROPIVACAINE 0.2%-NS ON-Q PUMP 2 MG/ML EACH MISCELLANE ONE (10:08)
--- NOTE | 2021-10-30 10:16 | OP ---
OPERATIVE REPORT DATE OF PROCEDURE: 10/30/2021. SURGEON: Rod Valdes MD. PARTS ANALYST: Cristopher NASH. PREOPERATIVE DIAGNOSIS: Right knee osteoarthrosis. POSTOPERATIVE DIAGNOSIS: Right knee osteoarthrosis. OPERATION: Right total knee arthroplasty. ANESTHESIA: General endotracheal. ESTIMATED BLOOD LOSS: 100 mL. TOURNIQUET: Tourniquet time was 46 minutes at 250 mmHg. COMPLICATIONS: None apparent. DRAINS: None. DISPOSITION: Postanesthesia care unit. INDICATIONS: Satya is a very pleasant 66-year-old male with longstanding history of right knee pain. History and physical examination are consistent with advanced right knee osteoarthrosis. He has been through significant nonoperative management at this point. Further treatment options were discussed. He has decided to go forward with right total knee arthroplasty. Risks of the procedure were discussed with him in detail. These risks include, but are not limited to risk of infection, nerve damage, bleeding, pain, and a small risk of deep vein thrombosis which could lead to fatal pulmonary embolism. There is also risk of loosening of the implant which could require revision operation. The patient understands these risks. All of his questions were answered to his satisfaction. Appropriate informed consent was obtained. DESCRIPTION OF THE PROCEDURE: The patient was identified in the preoperative holding area. Surgical site was marked by both the patient and myself. He was given 2 grams of Ancef IV for prophylactic purposes. He was then transported to the operative suite. He was placed supine on the operating table. General anesthetics administered dosed per the anesthesia without apparent complication. Examination under anesthesia was then performed. The patient was 2-3 degrees shy of full extension. He had 100 degrees of flexion. Medial collateral ligament, lateral collateral ligament and posterior cruciate ligaments were stable. A tourniquet was then placed high on the right upper thigh well-padded in preparation for surgery. The patient's right lower extremity was then prepped and draped in usual sterile fashion. Standard surgical pause undertaken to ensure that we were operating on the correct site and that appropriate preoperative antibiotics were given. All staff in the room were in agreement and we proceeded. The outlines of the patella were marked with a surgical pen. A planned 12 cm vertical incision centered over the patella was marked with a surgical pen. Leg was then exsanguinated with an Esmarch dressing. The knee was then flexed and the tourniquet was inflated to 250 mmHg. The total tourniquet time for the procedure was 46 minutes. Incision was then made with a 10 blade scalpel. Dissection was carried down sharply overlying fascia. Great care was taken to minimize the skin flaps. The knee was then exposed using a standard medial parapatellar approach. A small cuff of quadriceps tendon was then left for suturing. He was in a small amount of valgus preoperatively. A very minimal medial release was then made. This was done just enough to place the retractors on the medial aspect of the knee. The medial meniscus was then excised as well. The lateral meniscus was also released anteriorly. The leg was then externally rotated. The patella was everted and the knee was flexed. Retractors were then placed to protect the collateral ligaments. I then proceeded to remove the infrapatellar fat pad. It was excised sharply tangentially with the fibers of the patellar tendon. I then proceeded to remove the peripheral osteophytes. This was done with a rongeur. I then proceeded with the distal femoral resection. He did have near full extension. A planned 9 mm resection was then done. The femoral canal was then entered in midline. The femur approximately 10 mm anterior to the origin of posterior cruciate ligament. The luis m was then advanced down the center femur and placed intramedullary. Based on preoperative radiographs, the angle between the anatomic and mechanical axis of the femur was approximately 4-5 degrees with a valgus angle. Distal femoral cutting guide was set at 4 degrees for the right knee. The distal femoral cutting guide was then advanced over the intramedullary luis m. This was seated firmly against the femur. I then as mentioned planned to take 9 mm off the distal femur. The cutting block was then secured onto the femur with pins. The jig was then removed. The distal femoral cut was made through the slot of the block. The pins were then removed. The distal femoral cutting block was removed. The accuracy of the distal femoral cuts was checked with 2 flat bars. I then proceeded with femoral sizing. Posterior referencing sizing guide was held firmly against the resected distal surface of the femur. The posterior condyles were resting on the posterior plane of the guide. The sizing stylus was then placed on the anterior femur. The size was measured as a size 8. I then assessed for femoral rotation. Plan was for 3 degrees of external rotation. Three degrees of external rotation was placed onto the jig. These holes were then marked. We then confirmed the rotation by 3 separate methods. This was done using epicondylar axis as well as Whitesides line and posterior referencing. It was deemed that the external rotation was proper. I then went forward placing the femoral cutting block. This was placed over the previously placed pin holes. The Evans wing was then placed onto the anterior slots to ensure that we would not notch the anterior femur with the anterior femoral cut. I then proceeded with the anterior femoral cut. This was flush with the anterior cortex of the femur. The posterior cuts were made followed by the anterior chamfer cut, and the posterior chamfer cut. The cutting block was then removed. Throughout the resection, the collateral ligaments were protected with retractors. I then placed a trial size 8 femur. It fit very nice medial-lateral and fit flush with the distal end of the femur. The drill holes were then made. I then proceeded with the tibial cut. I planned for cruciate retaining knee. The guide was placed in separate varus valgus and for slope. The height was set for approximate 2 mm resection from the medial tibial plateau which was the lower side. I was happy with the alignment and amount of resection. The cutting block was then pinned to the proximal tibia. The alignment luis m was removed. The proximal tibia was resected with a reciprocating saw. Again, this was done with retractors protecting the collateral ligaments as well as the posterior cruciate ligament. I then proceeded to evaluate the flexion extension gaps. A 10 mm block was then placed. The flexion and extension gaps were equal. I then proceeded with resection of posterior osteophytes. He had very minimal posterior osteophytes. This was done using a curved osteotome. This resected the posterior osteophytes. The posterior capsule stripping was done off the posterior aspect of the femur at this time. The osteophytes were then removed. I then proceeded with resection of the patella. The thickness of the patella was measured using the caliper. The thickness was 26 mm. The thickness of the anticipated patellar dome was taken into account. The resection was then performed and confirmed to be equal in 4 quadrants using a caliper. Approximately 14 mm of bone remained after resection. A 32 x 8.5 standard patellar trial was then placed. The holes drilled. The trial was then placed. I then proceeded with sizing tibial plate. A size F tibial plate fit very nicely. I then placed trial femur in the tibial tray and patellar button. A 10 mm trial tibial insert was also placed. The components fit very nicely. She had full extension. The extension flexion gaps were equal and stable to both varus and valgus stress. The patella tracked appropriately. The tibial tray rotation was then marked with a Bovie. This was externally rotated properly. I then proceed with tibial preparation. I first drilled the femoral holes, removed femoral component. The tibial tray was then set for proper external rotation as well as mediolateral placement onto the tibia. It was then pinned into place. I then proceeded with punching the keel. I then decided to proceed with cementing of all our components. The knee was thoroughly irrigated with sterile saline solution via pulse lavage. The lateral geniculate artery was identified and cauterized. All blood was removed from the bone of the tibia femur and patella with pulse lavage. I then proceed with cementing. Two packs of antibiotic bone cement were prepared on the back table by the nursing surgical services director. I then proceed with cementing of the tibia first. The cement was impacted in the keel as well as deeply seated into the bone. A second coat of cement was then placed. The tibia was then impacted into place. Excess cement was removed with Wisam's and Joker's. I then proceeded with cementing of the femoral component. The femoral component was also cemented using standard technique. Excess cement was removed. A 10 mm trial insert was then placed into the knee. It was brought into full extension with a constant axial load placed until the cement had hardened. The patellar component was then cemented. This held firmly with a compressive device until the cement had dried. When the cement had dried, the knee was out of extension. All excess cement was removed from around the prosthesis. I then trialed the knee with a 10 mm insert. Flexion extension gaps were appropriate. The knee was stable. It came into full extension. I decided to go forward with a 10 mm medial congruent cross-linked cruciate- retaining tibial insert. Polyethylene was then placed on the tibial tray and locked into place. The knee was then reduced. The knee was again further irrigated with sterile saline solution with antibiotic added. The tourniquet was then deflated. The total tourniquet time for the procedure was 46 minutes at 250 mmHg. Final components were Vonnie Persona size 8 cruciate-retaining femoral component, size F tibial tray, a 10 mm medial congruent cruciate-retaining polyethylene insert and a 32 x 8.5 mm patella. I then proceeded with closure. Again, the knee was thoroughly irrigated. The quadriceps tendon and the medial retinaculum were reapproximated with #2 Ethibond suture. The extensor mechanism was then closed with a running #2 Quill suture. Subcutaneous tissues were closed with 2-0 Vicryl interrupted suture. The skin was closed with a running 3-0 Quill suture. Dermabond was applied to the incision. Sterile compressive dressings were applied. All sponge and needle counts were deemed correct prior to closure. The patient tolerated the procedure without apparent complication. He was transferred to recovery room in stable condition. MMODL / IJN: [id number] /
--- NOTE | 2021-10-30 10:25 | XR ---
EXAMINATION TYPE: XR knee limited RT DATE OF EXAM: 10/30/2021 COMPARISON: NONE HISTORY: 66-year-old male evaluation for postoperative abnormality in alignment TECHNIQUE: 2 views FINDINGS: Images show placement of right total knee arthroplasty. Both distal femoral and proximal tibial compo nents and the prosthesis appear well seated without progressive fracture. We note slight medial tilt of the tibial tray component. Healed fracture deformity proximal third fibular shaft. Anterior soft t issue swelling with scattered soft tissue air as well as intra-articular air related to recent operat ion. IMPRESSION: Old healed fracture deformity proximal fibular shaft. Postoperative changes right total knee arthropl asty. Slight medial tilt of the tibial tray component likely intended surgical technique. Clinically correlate. Otherwise, uncomplicated appearance.
[2021-10-30 10:30] LABS: Glucose,Whole Blood 230 mg/dL (75-99)
[2021-10-30] MEDS: LACTATED RINGERS 1,000 ML IV SCH (12:52)
--- NOTE | 2021-10-30 15:25 | P.CNPUL ---
History of Present Illness Consult date: 10/30/21 Requesting physician: Rod Valdes Reason for consult: other (Postoperative medical management) Chief complaint: Status post right total knee arthroplasty History of present illness: This is a 66-year-old white male with history of multiple medical problems including benign essential hypertension, type 2 diabetes, chronic kidney disease, degenerative joint disease, history of colonic polyps, patient was recently seen in my office, and I cleared him for right total knee arthroplasty, as the patient has severe osteoarthritis involving the right knee. Patient underwent surgery today, postoperatively I was asked to see him on consultation for routine medical management. Patient is doing great, relatively asymptomatic. Denies any cough no wheezing no chest pain or shortness of breath. Postoperative orders were noted, his home medications will be restarted Review of Systems Constitutional: Negative HEENT: Negative Pulmonary: Negative GI: Negative Cardiac: Negative Genitourinary: Negative Musculoskeletal history of degenerative joint disease Neurologic: Negative Endocrine history of type 2 diabetes Hematologic: Negative Psychiatric: Negative Skin: Negative Past Medical History Past Medical History: Cancer, Diabetes Mellitus, Hyperlipidemia, Hypertension, Osteoarthritis (OA) Additional Past Medical History / Comment(s): Skin Cancer rt cheek, last chol level normal-no longer taking Rx,Covid infection Apr 2020 History of Any Multi-Drug Resistant Organisms: None Reported Past Surgical History: Orthopedic Surgery Additional Past Surgical History / Comment(s): arthroscopy rt knee,ORIF rt tibia/fibula w/ 2 pins,CA removed rt cheek,lasik johana eyes Past Anesthesia/Blood Transfusion Reactions: No Reported Reaction Additional Past Anesthesia/Blood Transfusion Reaction / Comment(s): stated "chest was sore post op for a few days after arthroscopy of rt knee".new hx blood transfusions Past Psychological History: No Psychological Hx Reported Smoking Status: Never smoker Past Alcohol Use History: Occasional Past Drug Use History: None Reported - Past Family History Brother(s) Family Medical History: Cancer Medications and Allergies Home Medications Medication Instructions Recorded Confirmed Type hydroCHLOROthiazide 25 mg PO DAILY 01/28/18 10/30/21 History amLODIPine [Norvasc] 5 mg PO BID 01/18/19 10/30/21 History metFORMIN HCL [Glucophage] 500 mg PO BID 01/18/19 10/30/21 History Mupirocin 2% Oint [Bactroban 2% 1 applic NASAL DIRECTED 10/28/21 10/30/21 History Oint] Docusate [Colace] 100 mg PO BID #60 capsule 10/30/21 Rx Rivaroxaban [Xarelto] 10 mg PO DAILY #10 tab 10/30/21 Rx Allergies Allergy/AdvReac Type Severity Reaction Status Date / Time No Known Allergies Allergy Verified 10/30/21 06:40 Physical Exam Vitals: Vital Signs Temp Pulse Pulse Pulse Resp BP BP 10/30/21 14:15 66 151/78 10/30/21 14:00 73 135/69 10/30/21 13:45 81 141/74 10/30/21 13:15 76 146/79 10/30/21 13:00 68 146/80 10/30/21 12:45 75 157/87 10/30/21 12:30 74 157/92 10/30/21 12:15 97.6 F 61 17 154/80 10/30/21 11:30 67 16 137/75 10/30/21 11:00 57 L 16 140/69 10/30/21 10:55 77 18 138/71 10/30/21 10:45 63 16 129/66 10/30/21 10:30 69 16 127/67 10/30/21 10:15 63 16 125/62 10/30/21 09:59 97.2 F L 77 14 125/62 10/30/21 07:54 144/73 10/30/21 07:23 170/83 10/30/21 06:42 97.6 F 80 16 203/103 Pulse Ox 10/30/21 14:15 10/30/21 14:00 10/30/21 13:45 10/30/21 13:15 10/30/21 13:00 10/30/21 12:45 10/30/21 12:30 10/30/21 12:15 95 10/30/21 11:30 97 10/30/21 11:00 96 10/30/21 10:55 96 10/30/21 10:45 95 10/30/21 10:30 98 10/30/21 10:15 96 10/30/21 09:59 97 10/30/21 07:54 10/30/21 07:23 10/30/21 06:42 95 Intake and Output 10/30/21 10/30/21 10/30/21 06:59 14:59 22:59 Intake Total 2100 Output Total 100 Balance 2000 Intake: IV 2100 Output: Estimated Blood Loss 100 Other: Weight 112.1 kg 112.1 kg Physical Exam: Revealed 66-year-old white male in no distress Head: Atraumatic, normocephalic. HEENT:[Neck is supple.] [No neck masses.] [No thyromegaly.] [No JVD.] Chest: [Clear throughout, no crackles, no rhonchi, no wheezes.] Cardiac Exam: [Normal S1 and S2, no S3 gallop, no murmur.] Abdomen: [Soft, nontender, no megaly, no rebound, no guarding, normal bowel sounds.] Extremities: [No clubbing, no edema, no cyanosis.] Right knee is wrapped with Jace wrap Neurological Exam: [No focal neurologic deficit.] Alert and oriented 3 Psychiatric: Normal mood, affect and normal mental status examination. Skin: No rashes Musculoskeletal: No deformities and no limitation range of motion. Results - Laboratory Findings PT/INR, D-dimer PT 9.9 sec (9.0-12.0) 10/30/21 06:49 INR 0.9 (<1.2) 10/30/21 06:49 Abnormal lab findings: Abnormal Labs 10/30/21 10/30/21 06:59 10:29 POC Glucose (mg/dL) 206 H 230 H - Diagnostic Findings Additional studies: X-rays of right knee postoperatively were noted, report was reviewed. Assessment and Plan Assessment: Impression: Status post right total knee arthroplasty Benign essential hypertension Type 2 diabetes Pure hypercholesterolemia Chronic kidney disease History of colonic polyps Recommendation: Continue incentive spirometry GI prophylaxis and DVT prophylaxis Resume home meds Placed on sliding scale insulin/NovoLog insulin Possible discharge planning in the next 24 hours. Outpatient follow-up post discharge. Time with Patient: Greater than 30
[2021-10-30] MEDS: HYDROcodone/APAP 7.5-325MG 1 EACH TAB PO PRN ×2 (15:54→19:36)
[2021-10-30 16:38] LABS: Glucose,Whole Blood 254 mg/dL (75-99)
--- NOTE | 2021-10-30 17:25 | P.ANPRN ---
Procedure Note - Anesthesia - Nerve Block Performed Right Adductor Canal Infusion Time Out Performed: Yes Date of Procedure: 10/30/21 Procedure Start Time: 07:30 Procedure Stop Time: 07:40 Location of Patient: PreOp Indication: Acute Post-Operative Pain, Requested by Surgeon Sedation Type: Sedate with meaningful contact maintained Preparation: Sterile Prep, Sterile Dressing Position: Supine Catheter: Indwelling Needle Types: Pajunk Needle Gauge: 21 Ultrasound used to visualize needle placement: Yes Ultrasound used to observe medication spread: Yes Blood Aspirated: No Pain Paresthesia on Injection Noted: No Resistance on Injection: Normal Image Stored and Saved: Yes Events: Uneventful and Well Tolerated (ropi .5% 20cc)
[2021-10-30] MEDS: INSULIN ASPART (NovoLOG) 100 UNIT/ML VIAL SQ SCH (17:26)
[2021-10-30] MEDS: metFORMIN 500 MG TAB PO SCH (17:26)
[2021-10-30] MEDS: PANTOPRAZOLE 40 MG TABLET PO SCH (17:26)
--- NOTE | 2021-10-30 17:26 | P.ANPRN ---
Procedure Note - Anesthesia - Nerve Block Performed Right Nasrack Single Time Out Performed: Yes Date of Procedure: 10/30/21 Procedure Start Time: 07:41 Procedure Stop Time: 07:44 Location of Patient: PreOp Indication: Acute Post-Operative Pain, Requested by Surgeon Sedation Type: Sedate with meaningful contact maintained Preparation: Sterile Prep Position: Supine Needle Types: Pajunk Needle Gauge: 21 Ultrasound used to visualize needle placement: Yes Ultrasound used to observe medication spread: Yes Blood Aspirated: No Pain Paresthesia on Injection Noted: No Resistance on Injection: Normal Image Stored and Saved: Yes Events: Uneventful and Well Tolerated (ropi .5% 25cc plus dexamethasone 4mg)
[2021-10-30] MEDS: amLODIPine 5 MG TAB PO SCH (19:30)
[2021-10-30 20:56] LABS: Glucose,Whole Blood 193 mg/dL (75-99)
[2021-10-30] MEDS ORDERED: SENNOSIDES-DOCUSATE SODIUM 1 EACH TAB PO SCH (21:00)
[2021-10-31] MEDS: HYDROcodone/APAP 7.5-325MG 1 EACH TAB PO PRN ×2 (00:02→04:36)
[2021-10-31] MEDS: LACTATED RINGERS 1,000 ML IV SCH ×2 (03:21→03:22)
[2021-10-31 06:50] LABS: Glucose,Whole Blood 175 mg/dL (75-99)
--- NOTE | 2021-10-31 07:13 | P.PN ---
Progress Note - Text 10/31/21 657am 66-year-old male status post total knee replacement by Dr. Valdes. Patient has an On-Q pump for postop pain control with the solution running at 8 mL an hour with a VAS of 3 at rest. Pain is predominantly located anterior. Dressing clean dry and intact. Plan to continue On-Q pump infusion
[2021-10-31 07:42] VITALS: BP 164/89; PULSE 63; RESP 18; TEMP 98.1
[2021-10-31 08:49] LABS: Basophils # (A) 0.01 X 10*3/uL (0.00-0.10); Basophils % (A) 0.1 %; Eosinophils # (A) 0.05 X 10*3/uL (0.04-0.35); Eosinophils % (A) 0.7 %; HGB 11.5 g/dL (13.0-17.0); Immature Grans, Automated 0.3 %; Lymphocytes # (A) 1.32 X 10*3/uL (0.90-5.00); Lymphocytes % (A) 17.5 %; MCH 31.1 pg (27.0-32.0); MCHC 31.9 g/dL (32.0-37.0); MCV 97.3 fL (80.0-97.0); Monocytes # (A) 0.89 X 10*3/uL (0.20-1.00); Monocytes % (A) 11.8 %; NRBC Per 100 WBC 0 /100 WBCS (0.0-0.0); Neutrophils # (A) 5.27 X 10*3/uL (1.80-7.70); Neutrophils % (A) 69.6 %; Platelet Count 195 X 10*3/uL (140-440); WBC 7.56 X 10*3/uL (4.50-10.00)
[2021-10-31] MEDS: amLODIPine 5 MG TAB PO SCH (08:58)
[2021-10-31] MEDS: INSULIN ASPART (NovoLOG) 100 UNIT/ML VIAL SQ SCH (08:58)
[2021-10-31] MEDS: PANTOPRAZOLE 40 MG TABLET PO SCH (08:58)
[2021-10-31] MEDS: metFORMIN 500 MG TAB PO SCH (08:58)
[2021-10-31] MEDS ORDERED: RIVAROXABAN 10 MG TAB PO SCH (09:00)
--- NOTE | 2021-10-31 10:30 | P.DS ---
Providers Expected date of discharge: 10/31/21 Attending physician: Rod Valdes Consults: 10/30/21 08:05 Consult Physician Routine Consulting Provider: Neha Marc Consult Reason/Comments: post op medical management Do you want consulting provider notified?: Yes Primary care physician: Neha Marc - Discharge Diagnosis(es) (1) Status post total knee replacement Patient was admitted to the OR on 10/30/21 to undergo a right total knee arthroplasty. He had failed conservative measures as an outpatient and desired to proceed with elective surgery after given informed consent. He underwent the above procedure which he tolerated well without complication. Postoperative hospital course has remained without complication. On day of discharge he is afebrile, vital signs stable, labs within acceptable ranges, tolerating by mouth meds and diet, voiding without difficulty, positive flatus, denies abdominal pain or calf pain, pain is controlled on oral pain medication and has no new complaints. Wound is benign, neurovascular status is intact, calf is soft and nontender, abdomen soft and nontender. Review of systems is negative for numbness, tingling, fever, chills, chest pain, shortness of breath, nausea, vomiting, dizziness, headaches, slurred speech or other. Current Visit: Yes Status: Acute Priority: Medium Procedures: Right TKA Patient Condition at Discharge: Good Plan - Discharge Summary Discharge Rx Participant: No New Discharge Prescriptions: New HYDROcodone/APAP 7.5-325MG [Ferrum 7.5-325] 1 - 2 each PO Q6HR PRN #42 tab PRN Reason: Pain Rivaroxaban [Xarelto] 10 mg PO DAILY #10 tab Docusate [Colace] 100 mg PO BID #60 capsule No Action hydroCHLOROthiazide 25 mg PO DAILY metFORMIN HCL [Glucophage] 500 mg PO BID amLODIPine [Norvasc] 5 mg PO BID Mupirocin 2% Oint [Bactroban 2% Oint] 1 applic NASAL DIRECTED Discharge Medication List hydroCHLOROthiazide 25 mg PO DAILY 01/28/18 [History] amLODIPine [Norvasc] 5 mg PO BID 01/18/19 [History] metFORMIN HCL [Glucophage] 500 mg PO BID 01/18/19 [History] Mupirocin 2% Oint [Bactroban 2% Oint] 1 applic NASAL DIRECTED 10/28/21 [History] Docusate [Colace] 100 mg PO BID #60 capsule 10/30/21 [Rx] Rivaroxaban [Xarelto] 10 mg PO DAILY #10 tab 10/30/21 [Rx] HYDROcodone/APAP 7.5-325MG [Ferrum 7.5-325] 1 - 2 each PO Q6HR PRN #42 tab 10/31/21 [Rx] Follow up Appointment(s)/Referral(s): [facility], [NON-STAFF] - As Needed Rod Valdes MD [STAFF PHYSICIAN] - 10 Days Patient Instructions/Handouts: *Surgery [facility] - On-Q Pain Pump Discharge Instructions, *Surgery [facility] - (Anesthesia) Discharge Instructions Outpatient Surgery, How to Use an Incentive Spirometer (DC), Knee Replacement (DC) Activity/Diet/Wound Care/Special Instructions: Weight bear as tolerated May shower after 3 days if no bleeding Keep wound clean and dry Take meds as directed F/U with Dr. Valdes in office Discharge Disposition: HOME WITH HOME HEALTH SERVICES
[2021-10-31] MEDS ORDERED: MULTIVITAMINS, THERA 1 EACH TAB PO SCH (12:00)
--- NOTE | 2021-10-31 14:29 | P.PN ---
Subjective Progress Note Date: 10/31/21 Principal diagnosis: Status post right total knee arthroplasty postoperative day 1 Patient was reevaluated today on 10/31/21, patient is status post right total knee arthroplasty. Patient is doing great, he is being discharged by orthopedics, no overnight issues, patient is stable, he has no complaints, and I will clear the patient for discharge home today. Objective - Vital Signs Vital signs: Vital Signs Temp 98.1 F 10/31/21 07:22 Pulse 63 10/31/21 07:22 Resp 18 10/31/21 07:22 BP 164/89 10/31/21 07:22 Pulse Ox 95 10/31/21 07:22 Intake & Output 10/30/21 10/31/21 10/31/21 18:59 06:59 18:59 Intake Total 2751 50 Output Total 100 Balance 2651 50 Weight 112.1 kg Intake: IV 2101 Intake, IV Titration 650 50 Amount Lactated Ringers 1,000 ml 600 @ 100 mls/hr IV .Q10H JOHN Rx#:[id number] ceFAZolin 2 gm In Sodium 50 50 Chloride 0.9% 50 ml @ 100 mls/hr IVPB Q8HR JOHN Rx# :[id number] Output: Estimated Blood Loss 100 Other: # Voids 1 3 - Exam Physical Exam: Revealed 66-year-old white male in no distress Head: Atraumatic, normocephalic. HEENT:[Neck is supple.] [No neck masses.] [No thyromegaly.] [No JVD.] Chest: [Clear throughout, no crackles, no rhonchi, no wheezes.] Cardiac Exam: [Normal S1 and S2, no S3 gallop, no murmur.] Abdomen: [Soft, nontender, no megaly, no rebound, no guarding, normal bowel sounds.] Extremities: [No clubbing, no edema, no cyanosis.] Right knee is wrapped with Jace wrap Neurological Exam: [No focal neurologic deficit.] Alert and oriented 3 Psychiatric: Normal mood, affect and normal mental status examination. Skin: No rashes Musculoskeletal: No deformities and no limitation range of motion. - Labs CBC & Chem 7: 10/31/21 05:50 Labs: Abnormal Lab Results - Last 24 Hours (Table) 10/30/21 10/30/21 10/31/21 Range/Units 16:36 20:55 05:50 RBC 3.70 L (4.40-5.60) X 10*6/uL Hgb 11.5 L (13.0-17.0) g/dL Hct 36.0 L (39.6-50.0) % MCV 97.3 H (80.0-97.0) fL MCHC 31.9 L (32.0-37.0) g/dL POC Glucose (mg/dL) 254 H 193 H (75-99) mg/dL 10/31/21 Range/Units 06:48 RBC (4.40-5.60) X 10*6/uL Hgb (13.0-17.0) g/dL Hct (39.6-50.0) % MCV (80.0-97.0) fL MCHC (32.0-37.0) g/dL POC Glucose (mg/dL) 175 H (75-99) mg/dL Assessment and Plan Assessment: Impression: Status post right total knee arthroplasty, postoperative day #1 Benign essential hypertension Type 2 diabetes Pure hypercholesterolemia Chronic kidney disease History of colonic polyps Recommendation: Agree with discharge planning, Follow-up on outpatient basis. Resume home meds Continue incentive spirometry at home Time with Patient: Less than 30
== END 2021-10-31 11:38 | disposition home health service (06) ==
LOC: OR 06:05 → 4SSUR 09:54 → OR 10-31 11:38
PROVIDERS: ATTEND Orthopaedic Surgery Sports Medicine
DX: M17.11 Unilateral primary osteoarthritis, right knee (principal); M25.761 Osteophyte, right knee; M21.41 Flat foot [pes planus] (acquired), right foot; E78.5 Hyperlipidemia, unspecified; I12.9 Hypertensive chronic kidney disease with stage 1 through stage 4 chronic kidney disease, or unspecified chronic kidney disease; E11.22 Type 2 diabetes mellitus with diabetic chronic kidney disease; E11.65 Type 2 diabetes mellitus with hyperglycemia; N18.31 Chronic kidney disease, stage 3a; E78.00 Pure hypercholesterolemia, unspecified; Z86.16 Personal history of COVID-19; Z98.890 Other specified postprocedural states; Z82.49 Family history of ischemic heart disease and other diseases of the circulatory system; Z86.010 Personal history of colon polyps; Z85.828 Personal history of other malignant neoplasm of skin; Z80.9 Family history of malignant neoplasm, unspecified; Z79.84 Long term (current) use of oral hypoglycemic drugs; Z79.899 Other long term (current) drug therapy
CPT/HCPCS: 97161; 64999; 64448; 76942; 85025; 85610; 88300; 73560; 27447; C1776; C1713; J2250; J0330; J2710; J0690 ×2; J2405; J3010; J1170; J2704; J2795; J2001

== ENCOUNTER → 2021-12-18 | Outpatient (CLI) | payer BC, MEDICARE ==
[2021-12-18 11:09] LABS: ALT 31 U/L (10-49); AST 20 U/L (14-35); African American GFR (CKD) 62.4 (60.0-200.0); Albumin 4.5 g/dL (3.8-4.9); Albumin/Globulin Ratio 1.65 (1.60-3.17); Alkaline Phosphatase 90 U/L (41-126); BUN/Creat Ratio 16.84 Ratio (12.00-20.00); Blood Urea Nitrogen 22.9 mg/dL (9.0-27.0); Calcium 9.8 mg/dL (8.7-10.3); Carbon Dioxide 26.5 mmol/L (20.0-27.5); Chloride 103 mmol/L (96-109); Chol/HDL Ratio 6.23 Ratio; Globulin 2.7 g/dL (1.6-3.3); Glucose 188 mg/dL (70-110); LDL Cholesterol,Calculated 161.9 mg/dL (0.0-131.0); Non-African American GFR(CKD) 53.8 (60.0-200.0); Potassium 4.3 mmol/L (3.5-5.5); Sodium 141 mmol/L (135-145); Total Protein 7.2 g/dL (6.2-8.2)
== END | disposition home or self-care (01) ==
LOC: LABWHC1 07:08
PROVIDERS: ATTEND Internal Medicine
DX: E78.5 Hyperlipidemia, unspecified (principal); E11.9 Type 2 diabetes mellitus without complications
CPT/HCPCS: 36415; 80053; 80061; 83036

== ENCOUNTER → 2022-09-28 | Outpatient (CLI) | payer BC ==
[2022-09-28 16:20] LABS: Basophils # (A) 0.04 X 10*3/uL (0.00-0.10); Basophils % (A) 0.5 %; Eosinophils # (A) 0.25 X 10*3/uL (0.04-0.35); Eosinophils % (A) 3.3 %; HCT 47.7 % (39.6-50.0); HGB 15.8 g/dL (13.0-17.0); Immature Grans, Automated 0.5 %; Lymphocytes # (A) 1.32 X 10*3/uL (0.90-5.00); Lymphocytes % (A) 17.2 %; MCH 31.3 pg (27.0-32.0); MCHC 33.1 g/dL (32.0-37.0); MCV 94.6 fL (80.0-97.0); Mean Platelet Volume 9.8 fL (9.5-12.2); Monocytes # (A) 0.54 X 10*3/uL (0.20-1.00); NRBC Per 100 WBC 0 /100 WBCS (0.0-0.0); Neutrophils # (A) 5.48 X 10*3/uL (1.80-7.70); Neutrophils % (A) 71.5 %; Platelet Count 267 X 10*3/uL (140-440); RBC 5.04 X 10*6/uL (4.40-5.60); WBC 7.67 X 10*3/uL (4.50-10.00)
[2022-09-28 17:03] LABS: ALT 27 U/L (10-49); AST 17 U/L (14-35); African American GFR (CKD) 62.5 (60.0-200.0); Albumin 4.7 g/dL (3.8-4.9); Albumin/Globulin Ratio 1.93 (1.60-3.17); Alkaline Phosphatase 94 U/L (41-126); BUN/Creat Ratio 19.78 Ratio (12.00-20.00); Blood Urea Nitrogen 26.7 mg/dL (9.0-27.0); Calcium 9.9 mg/dL (8.7-10.3); Carbon Dioxide 22.8 mmol/L (20.0-27.5); Chloride 105 mmol/L (96-109); Chol/HDL Ratio 4.94 Ratio; Globulin 2.4 g/dL (1.6-3.3); Glucose 137 mg/dL (70-110); LDL Cholesterol,Calculated 132.2 mg/dL (0.0-131.0); Non-African American GFR(CKD) 53.9 (60.0-200.0); Potassium 4.1 mmol/L (3.5-5.5); Sodium 141 mmol/L (135-145); Total Protein 7.1 g/dL (6.2-8.2)
== END | disposition home or self-care (01) ==
LOC: LABWHC1 09:05
PROVIDERS: ATTEND Internal Medicine
DX: Z00.00 Encounter for general adult medical examination without abnormal findings (principal); Z12.5 Encounter for screening for malignant neoplasm of prostate; I10 Essential (primary) hypertension; E78.00 Pure hypercholesterolemia, unspecified; E11.9 Type 2 diabetes mellitus without complications; R53.83 Other fatigue
CPT/HCPCS: 84439; 80061; 80053; 84443; 85025; 83036; 36415; G0103

== ENCOUNTER → 2023-04-06 | Outpatient (CLI) | payer MEDICARE, BC ==
[2023-04-06 10:54] LABS: Basophils # (A) 0.04 X 10*3/uL (0.00-0.10); Basophils % (A) 0.5 %; Eosinophils # (A) 0.24 X 10*3/uL (0.04-0.35); Eosinophils % (A) 3.1 %; HCT 45.7 % (39.6-50.0); HGB 15.2 d/dL (13.0-17.0); Lymphocytes # (A) 1.42 X 10*3/uL (0.90-5.00); Lymphocytes % (A) 18.3 %; MCH 31.6 pg (27.0-32.0); MCHC 33.3 d/dL (32.0-37.0); Mean Platelet Volume 9.8 FL (9.5-12.2); Monocytes # (A) 0.67 X 10*3/uL (0.20-1.00); Monocytes % (A) 8.6 %; NRBC Per 100 WBC 0 X 10*3/uL (0.00-0.01); Neutrophils # (A) 5.34 X 10*3/uL (1.80-7.70); Platelet Count 258 X 10*3/uL (140-440); RBC 4.81 X 10*6/uL (4.40-5.60); WBC 7.75 X 10*3/uL (4.50-10.00)
[2023-04-06 11:28] LABS: ALT 30 U/L (10-49); AST 19 U/L (14-35); Albumin 4.6 d/dL (3.8-4.9); Albumin/Globulin Ratio 1.92 Ratio (1.60-3.17); Alkaline Phosphatase 61 U/L (41-126); BUN/Creat Ratio 17.79 Ratio (12.00-20.00); Blood Urea Nitrogen 24.9 mg/dL (9.0-27.0); Calcium 10.2 mg/dL (8.7-10.3); Carbon Dioxide 26.5 mmol/L (21.6-31.8); Chloride 103 mmol/L (96-109); Chol/HDL Ratio 4.43 Ratio; Globulin 2.4 d/dL (1.6-3.3); Glucose 139 mg/dL (70-110); LDL Cholesterol,Calculated 161.1 mg/dL (0.0-131.0); Potassium 4.5 mmol/L (3.5-5.5); Sodium 142 mmol/L (135-145); Total Bilirubin 0.4 mg/dL (0.3-1.2)
[2023-04-06 11:50] LABS: Creatine Kinase 79 U/L (35-257); T4, Free (Free Thyroxine) 1.06 ng/dL (0.80-1.80)
== END | disposition home or self-care (01) ==
LOC: LABWHC1 06:53
PROVIDERS: ATTEND Internal Medicine Endocrinology, Diabetes & Metabolism
DX: I10 Essential (primary) hypertension (principal); E11.9 Type 2 diabetes mellitus without complications; E78.5 Hyperlipidemia, unspecified
CPT/HCPCS: 36415; 80053; 80061; 82550; 83036; 84153; 84439; 84443; 85025

== ENCOUNTER → 2023-07-08 | Outpatient (CLI) | payer MEDICARE, BC ==
[2023-07-08 11:39] LABS: ALT 31 U/L (10-49); AST 23 U/L (14-35); Albumin 4.4 g/dL (3.8-4.9); Albumin/Globulin Ratio 1.83 Ratio (1.60-3.17); Alkaline Phosphatase 58 U/L (41-126); BUN/Creat Ratio 16.67 Ratio (12.00-20.00); Calcium 9.8 mg/dL (8.7-10.3); Carbon Dioxide 26.7 mmol/L (21.6-31.8); Chloride 103 mmol/L (96-109); Chol/HDL Ratio 2.93 Ratio; Globulin 2.4 g/dL (1.6-3.3); Glucose 154 mg/dL (70-110); LDL Cholesterol,Calculated 79.7 mg/dL (0.0-131.0); Potassium 4.6 mmol/L (3.5-5.5); Sodium 141 mmol/L (135-145); Total Bilirubin 0.4 mg/dL (0.3-1.2); Total Protein 6.8 g/dL (6.2-8.2)
== END | disposition home or self-care (01) ==
LOC: LABWHC1 06:54
PROVIDERS: ATTEND Internal Medicine Endocrinology, Diabetes & Metabolism
DX: E11.65 Type 2 diabetes mellitus with hyperglycemia (principal)
CPT/HCPCS: 36415; 80053; 80061; 83036

== ENCOUNTER → 2023-09-06 | Outpatient (CLI) | payer MEDICARE, BC ==
[2023-09-06 18:57] LABS: ALT 34 U/L (10-49); AST 28 U/L (14-35); Albumin 4.5 g/dL (3.8-4.9); Albumin/Globulin Ratio 1.88 Ratio (1.60-3.17); Alkaline Phosphatase 60 U/L (41-126); BUN/Creat Ratio 15.47 Ratio (12.00-20.00); Blood Urea Nitrogen 23.2 mg/dL (9.0-27.0); Calcium 9.9 mg/dL (8.7-10.3); Carbon Dioxide 25.5 mmol/L (21.6-31.8); Chloride 105 mmol/L (96-109); Chol/HDL Ratio 2.97 Ratio; Globulin 2.4 g/dL (1.6-3.3); Glucose 143 mg/dL (70-110); LDL Cholesterol,Calculated 71.5 mg/dL (0.0-131.0); PSA Annual Screen 0.713 ng/mL (0.000-4.000); Potassium 4.8 mmol/L (3.5-5.5); Sodium 142 mmol/L (135-145); Total Bilirubin 0.3 mg/dL (0.3-1.2); Total Protein 6.9 g/dL (6.2-8.2)
== END | disposition home or self-care (01) ==
LOC: LABWHC1 06:46
PROVIDERS: ATTEND Internal Medicine
DX: Z12.5 Encounter for screening for malignant neoplasm of prostate (principal); E78.00 Pure hypercholesterolemia, unspecified; E11.65 Type 2 diabetes mellitus with hyperglycemia; M17.11 Unilateral primary osteoarthritis, right knee
CPT/HCPCS: 80061; 80053; 84480; 83036; 36415; G0103